=== PATIENT | female | born 1995 | race American Indian/Alaskan Native ===

== ENCOUNTER 2017-12-19 12:22 | Emergency (ER) | payer SELFPAY ==
[2017-12-19 14:19] LABS: HCG Qualitative,Urine Negative (Negative)
[2017-12-19 14:23] LABS: Bilirubin,Urine NEG (Negative); Blood,Urine NEG (Negative); Color,Urine Yellow (Yellow); Mucus,Urine 3+ /HPF; Protein,Urine <15 mg/dL mg/dL (Negative); Urobilinogen,Urine < 2.0 mg/dL (<2.0)
--- NOTE | 2017-12-19 16:00 | Emergency Department Report ---
ED Female HPI - General Chief complaint: Urogenital-Female Stated complaint: STOMACH,VAGINAL PAIN Time Seen by Provider: 12/19/17 15:45 Source: patient Mode of arrival: Ambulatory Limitations: No Limitations - History of Present Illness Initial comments: Patient is a 21-year-old asthmatic female who is here for some lower abdominal discomfort and dysuria. Patient states symptoms of present for the past 2-3 days. Patient states there is some burning sensation when she urinates and also irritation when she wipes. Patient denies urinary frequency or discharge. Patient states she also is late for her menses. Her last menses was October 25 last normal. Patient has taken several prior to tests at home which are negative. Patient denies any fevers chills nausea vomiting at this time. - Related Data Previous Rx's Medication Instructions Recorded Last Taken Type Ibuprofen [Motrin] 600 mg PO Q8H PRN #20 tablet 12/19/17 Unknown Rx Nitrofurantoin Monohyd/M-Cryst 100 mg PO BID #14 capsule 12/19/17 Unknown Rx [Macrobid 100 mg Capsule] Allergies Allergy/AdvReac Type Severity Reaction Status Date / Time No Known Allergies Allergy Verified 12/19/17 13:12 ED Review of Systems ROS: Stated complaint: STOMACH,VAGINAL PAIN Other details as noted in HPI Comment: All other systems reviewed and negative ED Past Medical Hx - Past Medical History Previous Medical History?: No - Surgical History Past Surgical History?: No - Social History Smoking Status: Never Smoker Substance Use Type: Alcohol, Marijuana - Medications Home Medications: Home Medications Medication Instructions Recorded Confirmed Last Taken Type Ibuprofen [Motrin] 600 mg PO Q8H PRN #20 tablet 12/19/17 Unknown Rx Nitrofurantoin Monohyd/M-Cryst 100 mg PO BID #14 capsule 12/19/17 Unknown Rx [Macrobid 100 mg Capsule] ED Physical Exam - General Limitations: No Limitations General appearance: alert, in no apparent distress - Head Head exam: Present: atraumatic, normocephalic - Eye Eye exam: Present: normal appearance - ENT ENT exam: Present: mucous membranes moist - Neck Neck exam: Present: normal inspection - Respiratory Respiratory exam: Present: normal lung sounds bilaterally. Absent: respiratory distress, wheezes, rales - Cardiovascular Cardiovascular Exam: Present: regular rate, normal rhythm. Absent: systolic murmur, diastolic murmur, rubs, gallop - GI/Abdominal GI/Abdominal exam: Present: soft, normal bowel sounds. Absent: distended, tenderness, guarding, rebound - External exam: Present: other (deferred) - Extremities Exam Extremities exam: Present: normal inspection - Back Exam Back exam: Present: normal inspection - Neurological Exam Neurological exam: Present: alert, oriented X3 - Psychiatric Psychiatric exam: Present: normal affect, normal mood - Skin Skin exam: Present: warm, dry, intact, normal color. Absent: rash ED Course Vital Signs 12/19/17 13:13 Temperature 98.6 F Pulse Rate 71 Respiratory 16 Rate Blood Pressure 121/67 O2 Sat by Pulse 96 Oximetry ED Medical Decision Making - Lab Data Lab Results 12/19/17 Range/Units 14:00 Urine Color Yellow (Yellow) Urine Turbidity Cloudy (Clear) Urine pH 5.0 (5.0-7.0) Ur Specific [place] 1.029 (1.003-1.030) Urine Protein <15 mg/dl (Negative) mg/dL Urine Glucose (UA) Neg (Negative) mg/dL Urine Ketones Neg (Negative) mg/dL Urine Blood Neg (Negative) Urine Nitrite Neg (Negative) Ur Reducing Substances Not Reportable Urine Bilirubin Neg (Negative) Urine Ictotest Not Reportable Urine Urobilinogen < 2.0 (<2.0) mg/dL Ur Leukocyte Esterase Neg (Negative) Urine WBC (Auto) 2.0 (0.0-6.0) /HPF Urine RBC (Auto) 5.0 (0.0-6.0) /HPF U Epithel Cells (Auto) 14.0 H (0-13.0) /HPF Urine Mucus 3+ /HPF Urine HCG, Qual Negative (Negative) - Medical Decision Making Patient's years now since was negative for nitrites and leukocytes however the patient is symptomatic. There is a small amount of wbc's present. Urine culture will be sent the patient will be treated empirically for interstitial cystitis. Regarding the patient's missed menses her test here is negative she will be referred to [facility] for further management. Critical care attestation.: If time is entered above; I have spent that time in minutes in the direct care of this critically ill patient, excluding procedure time. ED Disposition Clinical Impression: Dysuria Oligomenorrhea, unspecified Qualifiers: Oligomenorrhea type: unspecified type Qualified Code(s): N91.5 - Oligomenorrhea , unspecified Disposition: TO HOME OR SELFCARE Is pt being admited?: No Does the pt Need Aspirin: No Condition: Stable Instructions: Dysuria (ED) Referrals: PARISH MEHTA [Staff Physician] - 3-5 Days Time of Disposition: 16:00
[2017-12-19 16:09] VITALS: BP 146/72
== END 2017-12-19 16:06 | disposition home or self-care (01) ==
LOC: ED 12:22
DX: N91.5 Oligomenorrhea, unspecified (principal); F12.10 Cannabis abuse, uncomplicated
CPT/HCPCS: 81001; 81025; 99283

== ENCOUNTER 2020-02-06 15:12 | Emergency (ER) | payer SELFPAY ==
--- NOTE | 2020-02-06 20:00 | Emergency Department Report ---
ED General Adult HPI - General Chief complaint: Sore Throat Stated complaint: CHILLS/LIGHT HEADED/THROAT SOAR Time Seen by Provider: 02/06/20 19:59 Source: patient Mode of arrival: Ambulatory Limitations: No Limitations - History of Present Illness Initial comments: 24-year-old -[place] female patient presents with complaints of sore throat x2 days. She states she has painful swallowing, but denies any difficulty swallowing. She also reports a mild nonproductive cough and chills, but denies any fever, sweats, hemoptysis, shortness of breath, chest pain, rash, abdominal pain, or nausea/vomiting. She rates her current pain as a 6/10 in severity states it improves with ibuprofen somewhat. She denies any past medical history - Related Data Previous Rx's Medication Instructions Recorded Last Taken Type Ibuprofen [Motrin] 600 mg PO Q8H PRN #20 tablet 12/19/17 Unknown Rx Nitrofurantoin Monohyd/M-Cryst 100 mg PO BID #14 capsule 12/19/17 Unknown Rx [Macrobid 100 mg Capsule] Amoxicillin [Trimox CAP] 500 mg PO BID 10 Days #20 capsule 10/14/19 Unknown Rx Cetirizine HCl [Zyrtec 10mg tab] 10 mg PO DAILY #14 tablet 10/14/19 Unknown Rx Clindamycin [Clindamycin CAP] 300 mg PO Q6H 10 Days #40 capsule 11/16/19 Unknown Rx Ibuprofen [Motrin 800 MG tab] 800 mg PO Q8HR PRN #21 tablet 11/16/19 Unknown Rx Amoxicillin [Trimox CAP] 500 mg PO BID 10 Days #20 capsule 02/06/20 Unknown Rx Allergies Allergy/AdvReac Type Severity Reaction Status Date / Time blueberry Allergy Unknown Verified 02/06/20 15:24 ED Review of Systems ROS: Stated complaint: CHILLS/LIGHT HEADED/THROAT SOAR Other details as noted in HPI Constitutional: chills. denies: diaphoresis, fever, malaise, weakness ENT: throat pain. denies: dental pain Respiratory: cough. denies: shortness of breath Cardiovascular: denies: edema, syncope Gastrointestinal: denies: abdominal pain, nausea, vomiting Skin: denies: rash, lesions, change in color Hematological/Lymphatic: denies: swollen glands ED Past Medical Hx - Past Medical History Additional medical history: Bronchitis - Surgical History Hx Appendectomy: Yes - Social History Smoking Status: Never Smoker Substance Use Type: None - Medications Home Medications: Home Medications Medication Instructions Recorded Confirmed Last Taken Type Ibuprofen [Motrin] 600 mg PO Q8H PRN #20 tablet 12/19/17 Unknown Rx Nitrofurantoin Monohyd/M-Cryst 100 mg PO BID #14 capsule 12/19/17 Unknown Rx [Macrobid 100 mg Capsule] Amoxicillin [Trimox CAP] 500 mg PO BID 10 Days #20 capsule 10/14/19 Unknown Rx Cetirizine HCl [Zyrtec 10mg tab] 10 mg PO DAILY #14 tablet 10/14/19 Unknown Rx Clindamycin [Clindamycin CAP] 300 mg PO Q6H 10 Days #40 capsule 11/16/19 Unknown Rx Ibuprofen [Motrin 800 MG tab] 800 mg PO Q8HR PRN #21 tablet 11/16/19 Unknown Rx Amoxicillin [Trimox CAP] 500 mg PO BID 10 Days #20 capsule 02/06/20 Unknown Rx ED Physical Exam - General Limitations: No Limitations General appearance: alert, in no apparent distress, obese - Head Head exam: Present: atraumatic, normocephalic - Eye Eye exam: Present: normal appearance. Absent: scleral icterus - Expanded ENT Exam Expanded Mouth exam: Present: tongue normal. Absent: drooling, trismus Throat exam: Positive: tonsillar erythema, tonsillomegaly, tonsillar exudate, other (uvula is midline) - Neck Neck exam: Present: normal inspection, full ROM. Absent: tenderness, lymphadenopathy - Respiratory Respiratory exam: Present: normal lung sounds bilaterally. Absent: respiratory distress - Cardiovascular Cardiovascular Exam: Present: regular rate, normal rhythm. Absent: systolic murmur, diastolic murmur, rubs, gallop - Neurological Exam Neurological exam: Present: alert, oriented X3 - Psychiatric Psychiatric exam: Present: normal affect, normal mood - Skin Skin exam: Present: warm, dry, intact, normal color. Absent: rash, cyanosis, diaphoretic ED Course Vital Signs 02/06/20 15:27 Temperature 99.7 F H Pulse Rate 94 H Respiratory 20 Rate Blood Pressure 127/80 O2 Sat by Pulse 98 Oximetry ED Medical Decision Making - Medical Decision Making 24-year-old -[place] female patient presents with complaints of sore throat x2 days. She states she has painful swallowing, but denies any diffic ulty swallowing. She also reports a mild nonproductive cough and chills, but denies any fever, sweats, hemoptysis, shortness of breath, chest pain, rash, abdominal pain, or nausea/vomiting. She rates her current pain as a 6/10 in severity states it improves with ibuprofen somewhat. She denies any past medical history Bilateral tonsillar erythema, enlargement, and mild exudate noted on exam. Sue ngs are clear to auscultation bilaterally. Will treat empirically for strep pharyngitis with Amoxil. Patient to follow-up with PCP within 3 to 5 days. Her vitals are normal, she is well-appearing, stable for discharge home. Ibuprofen is to be used as needed as 600 to 800 mg 3 times daily. Strict return precautions were discussed in detail with patient who verbalized understanding. Critical care attestation.: If time is entered above; I have spent that time in minutes in the direct care of this critically ill patient, excluding procedure time. ED Disposition Clinical Impression: Acute pharyngitis Qualifiers: Pharyngitis/tonsillitis etiology: other specified organisms Qualified Code(s): J02.8 - Acute pharyngitis due to other specified organisms Disposition: DC-01 TO HOME OR SELFCARE Is pt being admited?: No Condition: Stable Instructions: Strep Throat (ED) Prescriptions: Amoxicillin [Trimox CAP] 500 mg PO BID 10 Days #20 capsule Referrals: AAYUSH CRUM MD [Staff Physician] - 3-5 Days
[2020-02-06 21:56] VITALS: BP 137/96
== END 2020-02-06 21:58 | disposition home or self-care (01) ==
LOC: ED 15:12
DX: J02.9 Acute pharyngitis, unspecified (principal); Z79.899 Other long term (current) drug therapy; Z90.49 Acquired absence of other specified parts of digestive tract; Z91.018 Allergy to other foods
CPT/HCPCS: 99281

== ENCOUNTER 2020-04-08 07:57 | Emergency (ER) | payer SELFPAY ==
[2020-04-08] MEDS ORDERED: KETOROLAC 60 MG/2 ML INJ IM ONE (12:07)
--- NOTE | 2020-04-08 12:08 | Emergency Department Report ---
ED Back Pain/Injury HPI - General Chief Complaint: Back Pain/Injury Stated Complaint: SEVERE BACK PAIN Time Seen by Provider: 04/08/20 12:06 Source: patient Limitations: No Limitations - History of Present Illness Initial Comments: This is a morbidly obese 24-year-old female complaining of lower back pain x1 week she denies any recent falls or injuries. She denies any urinary symptoms no prior history of back pain patient works as a guard she states bending and twisting is lowering her pain she denies any bowel or bladder incontinence and she denies any medical history she does report a history of appendectomy MD Complaint: back pain -: week(s) (1 week) Similar Symptoms Previously: No Place: home Radiation: none Severity: moderate Quality: aching Consistency: constant Improves With: immobilization Worsens With: movement, other (Bending and twisting causes the pain to worsen) Associated Symptoms: denies other symptoms. denies: weakness, chest pain, numbness, difficulty walking, cough, difficulty urinating, fever/chills, constipation, headaches, abdominal pain, loss of appetite, rash, seizure, shortness of breath - Related Data Previous Rx's Medication Instructions Recorded Last Taken Type Ibuprofen [Motrin] 600 mg PO Q8H PRN #20 tablet 12/19/17 Unknown Rx Nitrofurantoin Monohyd/M-Cryst 100 mg PO BID #14 capsule 12/19/17 Unknown Rx [Macrobid 100 mg Capsule] Amoxicillin [Trimox CAP] 500 mg PO BID 10 Days #20 capsule 10/14/19 Unknown Rx Cetirizine HCl [Zyrtec 10mg tab] 10 mg PO DAILY #14 tablet 10/14/19 Unknown Rx Clindamycin [Clindamycin CAP] 300 mg PO Q6H 10 Days #40 capsule 11/16/19 Unknown Rx Ibuprofen [Motrin 800 MG tab] 800 mg PO Q8HR PRN #21 tablet 11/16/19 Unknown Rx Amoxicillin [Trimox CAP] 500 mg PO BID 10 Days #20 capsule 02/06/20 Unknown Rx Ibuprofen [Motrin] 800 mg PO Q8HR PRN #21 tablet 04/08/20 Unknown Rx methOCARBAMOL [Robaxin TAB] 750 mg PO BID #30 tab 04/08/20 Unknown Rx Allergies Allergy/AdvReac Type Severity Reaction Status Date / Time blueberry Allergy Unknown Verified 02/06/20 15:24 ED Review of Systems ROS: Stated complaint: SEVERE BACK PAIN Other details as noted in HPI Comment: All other systems reviewed and negative Constitutional: no symptoms reported Respiratory: no symptoms reported. denies: shortness of breath, SOB with exertion Cardiovascular: denies: chest pain, palpitations Endocrine: no symptoms reported Gastrointestinal: denies: abdominal pain Musculoskeletal: back pain Neurological: denies: headache, weakness, paresthesias, abnormal gait Psychiatric: denies: anxiety ED Past Medical Hx - Past Medical History Previous Medical History?: Yes Additional medical history: Bronchitis - Surgical History Past Surgical History?: Yes Hx Appendectomy: Yes - Social History Smoking Status: Never Smoker Substance Use Type: None - Medications Home Medications: Home Medications Medication Instructions Recorded Confirmed Last Taken Type Ibuprofen [Motrin] 600 mg PO Q8H PRN #20 tablet 12/19/17 Unknown Rx Nitrofurantoin Monohyd/M-Cryst 100 mg PO BID #14 capsule 12/19/17 Unknown Rx [Macrobid 100 mg Capsule] Amoxicillin [Trimox CAP] 500 mg PO BID 10 Days #20 capsule 10/14/19 Unknown Rx Cetirizine HCl [Zyrtec 10mg tab] 10 mg PO DAILY #14 tablet 10/14/19 Unknown Rx Clindamycin [Clindamycin CAP] 300 mg PO Q6H 10 Days #40 capsule 11/16/19 Unknown Rx Ibuprofen [Motrin 800 MG tab] 800 mg PO Q8HR PRN #21 tablet 11/16/19 Unknown Rx Amoxicillin [Trimox CAP] 500 mg PO BID 10 Days #20 capsule 02/06/20 Unknown Rx Ibuprofen [Motrin] 800 mg PO Q8HR PRN #21 tablet 04/08/20 Unknown Rx methOCARBAMOL [Robaxin TAB] 750 mg PO BID #30 tab 04/08/20 Unknown Rx ED Physical Exam - General Limitations: No Limitations General appearance: alert, in no apparent distress - Head Head exam: Present: atraumatic - Eye Eye exam: Present: normal appearance - ENT ENT exam: Present: normal exam, mucous membranes moist - Neck Neck exam: Present: normal inspection - Respiratory Respiratory exam: Present: normal lung sounds bilaterally - Cardiovascular Cardiovascular Exam: Present: regular rate, normal heart sounds - GI/Abdominal GI/Abdominal exam: Present: soft. Absent: distended, tenderness - Extremities Exam Extremities exam: Present: normal inspection, full ROM, normal capillary refill - Back Exam Back exam: Present: normal inspection, full ROM, paraspinal tenderness, other. Absent: vertebral tenderness - Neurological Exam Neurological exam: Present: alert, oriented X3 - Psychiatric Psychiatric exam: Present: normal affect - Skin Skin exam: Present: warm, dry, intact, normal color. Absent: rash ED Course Vital Signs 04/08/20 04/08/20 08:18 15:30 Temperature 98.2 F 98.2 F Pulse Rate 88 77 Respiratory 18 18 Rate Blood Pressure 119/63 Blood Pressure 113/56 [Right] O2 Sat by Pulse 96 97 Oximetry ED Medical Decision Making - Medical Decision Making 24-year-old morbidly obese female with complaint of back pain no known trauma or falls. Her urine is negative for urinary tract infection this is most likely just lumbar strain discussed with patient need for weight loss to aid in the relief of her back pain patient verbalizes understanding Critical Care Time: No Critical care attestation.: If time is entered above; I have spent that time in minutes in the direct care of this critically ill patient, excluding procedure time. ED Disposition Clinical Impression: Low back strain Qualifiers: Encounter type: initial encounter Qualified Code(s): S39.012A - Strain of muscle, fascia and tendon of lower back, initial encounter Disposition: DC-01 TO HOME OR SELFCARE Is pt being admited?: No Does the pt Need Aspirin: No Condition: Stable Instructions: Lumbar Sprain, Back Injury Prevention, [id number], Low Back Sprain or Strain Rehab-SportsMed Additional Instructions: Take medication as prescribed. No heavy lifting more than 20 pounds. Follow-up with your primary care doctor in 3 to [address] Alemida or return to the emergency room for any worsening symptoms such as loss of bowel and bladder control Prescriptions: Ibuprofen [Motrin] 800 mg PO Q8HR PRN #21 tablet PRN Reason: Pain , Severe (7-10) methOCARBAMOL [Robaxin TAB] 750 mg PO BID #30 tab Referrals: PRIMARY CAREMD [Primary Care Provider] - 3-5 Days AAYUSH ALMEIDA MD [Staff Physician] - 3-5 Days Forms: Work/School Release Form(ED) Time of Disposition: 14:15
[2020-04-08 14:00] LABS: Bilirubin,Urine NEG (Negative); Blood,Urine NEG (Negative); Color,Urine Yellow (Yellow); Mucus,Urine 3+ /HPF; Protein,Urine <15 mg/dL mg/dL (Negative); Urobilinogen,Urine < 2.0 mg/dL (<2.0)
[2020-04-08 14:01] LABS: HCG Qualitative,Urine Negative (Negative)
[2020-04-08 15:43] VITALS: BP 113/56
== END 2020-04-08 15:38 | disposition home or self-care (01) ==
LOC: ED 07:57
DX: S39.012A Strain of muscle, fascia and tendon of lower back, initial encounter (principal); Z79.899 Other long term (current) drug therapy; Z91.018 Allergy to other foods; Z90.49 Acquired absence of other specified parts of digestive tract; X50.1XXA Overexertion from prolonged static or awkward postures, initial encounter; Y93.89 Activity, other specified; Y92.009 Unspecified place in unspecified non-institutional (private) residence as the place of occurrence of the external cause; Y99.8 Other external cause status
CPT/HCPCS: 81001; 81025; 96372; 99283; J1885

== ENCOUNTER 2020-08-01 14:35 | Emergency (ER) | payer SELFPAY ==
[2020-08-01 16:04] VITALS: BP 137/90
--- NOTE | 2020-08-01 18:02 | Emergency Department Report ---
ED ENT HPI - General Chief complaint: Sore Throat Stated complaint: SORE THROAT/RUNNY NOSE Time Seen by Provider: 08/01/20 17:09 Source: patient Mode of arrival: Ambulatory Limitations: No Limitations - History of Present Illness Initial comments: 24-year-old abdomen female [facility] emerge department complaining a 3-day history of not progressing sore throat that is worse with eating and drinking. She reports no nausea, no vomiting, no chest pain, palpitations, hemoptysis, hematemesis hematochezia, no fever, chills, sweats. She was able to tolerate l iquids and is still able to swallow pills. No abdominal pain or rashes at present no ear pain no nasal congestion. Severity: mild, moderate Quality: dull Improves with: none Worsens with: none Associated Symptoms: sore throat - Related Data Previous Rx's Medication Instructions Recorded Last Taken Type Ibuprofen [Motrin] 600 mg PO Q8H PRN #20 tablet 12/19/17 Unknown Rx Nitrofurantoin Monohyd/M-Cryst 100 mg PO BID #14 capsule 12/19/17 Unknown Rx [Macrobid 100 mg Capsule] Amoxicillin [Trimox CAP] 500 mg PO BID 10 Days #20 capsule 10/14/19 Unknown Rx Cetirizine HCl [Zyrtec 10mg tab] 10 mg PO DAILY #14 tablet 10/14/19 Unknown Rx Clindamycin [Clindamycin CAP] 300 mg PO Q6H 10 Days #40 capsule 11/16/19 Unknown Rx Ibuprofen [Motrin 800 MG tab] 800 mg PO Q8HR PRN #21 tablet 11/16/19 Unknown Rx Amoxicillin [Trimox CAP] 500 mg PO BID 10 Days #20 capsule 02/06/20 Unknown Rx Ibuprofen [Motrin] 800 mg PO Q8HR PRN #21 tablet 04/08/20 Unknown Rx methOCARBAMOL [Robaxin TAB] 750 mg PO BID #30 tab 04/08/20 Unknown Rx Amoxicillin/Potassium Clav 1 each PO BID #14 tablet 08/01/20 Unknown Rx [Augmentin 875-125 Tablet] dexAMETHasone [Decadron] 8 mg PO ONCE #2 tablet 08/01/20 Unknown Rx Allergies Allergy/AdvReac Type Severity Reaction Status Date / Time blueberry Allergy Unknown Verified 02/06/20 15:24 ED Dental HPI - General Chief complaint: Sore Throat Stated complaint: SORE THROAT/RUNNY NOSE Time Seen by Provider: 08/01/20 17:09 Source: patient Mode of arrival: Ambulatory Limitations: No Limitations - Related Data Previous Rx's Medication Instructions Recorded Last Taken Type Ibuprofen [Motrin] 600 mg PO Q8H PRN #20 tablet 12/19/17 Unknown Rx Nitrofurantoin Monohyd/M-Cryst 100 mg PO BID #14 capsule 12/19/17 Unknown Rx [Macrobid 100 mg Capsule] Amoxicillin [Trimox CAP] 500 mg PO BID 10 Days #20 capsule 10/14/19 Unknown Rx Cetirizine HCl [Zyrtec 10mg tab] 10 mg PO DAILY #14 tablet 10/14/19 Unknown Rx Clindamycin [Clindamycin CAP] 300 mg PO Q6H 10 Days #40 capsule 11/16/19 Unknown Rx Ibuprofen [Motrin 800 MG tab] 800 mg PO Q8HR PRN #21 tablet 11/16/19 Unknown Rx Amoxicillin [Trimox CAP] 500 mg PO BID 10 Days #20 capsule 02/06/20 Unknown Rx Ibuprofen [Motrin] 800 mg PO Q8HR PRN #21 tablet 04/08/20 Unknown Rx methOCARBAMOL [Robaxin TAB] 750 mg PO BID #30 tab 04/08/20 Unknown Rx Amoxicillin/Potassium Clav 1 each PO BID #14 tablet 08/01/20 Unknown Rx [Augmentin 875-125 Tablet] dexAMETHasone [Decadron] 8 mg PO ONCE #2 tablet 08/01/20 Unknown Rx Allergies Allergy/AdvReac Type Severity Reaction Status Date / Time blueberry Allergy Unknown Verified 02/06/20 15:24 ED Review of Systems ROS: Stated complaint: SORE THROAT/RUNNY NOSE Other details as noted in HPI Comment: All other systems reviewed and negative ED Past Medical Hx - Past Medical History Previous Medical History?: No Additional medical history: Bronchitis - Surgical History Hx Appendectomy: Yes - Social History Smoking Status: Never Smoker Substance Use Type: None - Medications Home Medications: Home Medications Medication Instructions Recorded Confirmed Last Taken Type Ibuprofen [Motrin] 600 mg PO Q8H PRN #20 tablet 12/19/17 Unknown Rx Nitrofurantoin Monohyd/M-Cryst 100 mg PO BID #14 capsule 12/19/17 Unknown Rx [Macrobid 100 mg Capsule] Amoxicillin [Trimox CAP] 500 mg PO BID 10 Days #20 capsule 10/14/19 Unknown Rx Cetirizine HCl [Zyrtec 10mg tab] 10 mg PO DAILY #14 tablet 10/14/19 Unknown Rx Clindamycin [Clindamycin CAP] 300 mg PO Q6H 10 Days #40 capsule 11/16/19 Unknown Rx Ibuprofen [Motrin 800 MG tab] 800 mg PO Q8HR PRN #21 tablet 11/16/19 Unknown Rx Amoxicillin [Trimox CAP] 500 mg PO BID 10 Days #20 capsule 02/06/20 Unknown Rx Ibuprofen [Motrin] 800 mg PO Q8HR PRN #21 tablet 04/08/20 Unknown Rx methOCARBAMOL [Robaxin TAB] 750 mg PO BID #30 tab 04/08/20 Unknown Rx Amoxicillin/Potassium Clav 1 each PO BID #14 tablet 08/01/20 Unknown Rx [Augmentin 875-125 Tablet] dexAMETHasone [Decadron] 8 mg PO ONCE #2 tablet 08/01/20 Unknown Rx ED Physical Exam - General Limitations: No Limitations General appearance: alert, in no apparent distress - Head Head exam: Present: atraumatic, normocephalic - Eye Eye exam: Present: normal appearance - ENT ENT exam: Present: mucous membranes moist, TM's normal bilaterally, other (Pharynx is red with some swelling. No exudate. No abscess noted. No lymphadenopathy) - Neck Neck exam: Present: normal inspection, full ROM - Respiratory Respiratory exam: Present: normal lung sounds bilaterally. Absent: respiratory distress - Cardiovascular Cardiovascular Exam: Present: regular rate, normal rhythm. Absent: systolic murmur, diastolic murmur, rubs, gallop - GI/Abdominal GI/Abdominal exam: Present: soft, normal bowel sounds - Extremities Exam Extremities exam: Present: normal inspection - Back Exam Back exam: Present: normal inspection - Neurological Exam Neurological exam: Present: alert, oriented X3 - Psychiatric Psychiatric exam: Present: normal affect, normal mood - Skin Skin exam: Present: warm, dry, intact, normal color. Absent: rash ED Course Vital Signs 08/01/20 16:03 Temperature 98.6 F Pulse Rate 78 Respiratory 18 Rate Blood Pressure 137/90 [Right] O2 Sat by Pulse 97 Oximetry Critical care attestation.: If time is entered above; I have spent that time in minutes in the direct care of this critically ill patient, excluding procedure time. ED Disposition Condition: Stable Prescriptions: Amoxicillin/Potassium Clav [Augmentin 875-125 Tablet] 1 each PO BID #14 tablet dexAMETHasone [Decadron] 8 mg PO ONCE #2 tablet
== END 2020-08-01 19:49 | disposition home or self-care (01) ==
LOC: ED 14:35
DX: J02.9 Acute pharyngitis, unspecified (principal); Z90.49 Acquired absence of other specified parts of digestive tract; Z79.899 Other long term (current) drug therapy; Z88.8 Allergy status to other drugs, medicaments and biological substances
CPT/HCPCS: 87116; 87430; 99283

== ENCOUNTER 2021-04-29 16:37 | Emergency (ER) | payer SELFPAY ==
[2021-04-29 18:13] VITALS: BP 129/92
[2021-04-29] MEDS ORDERED: GABAPENTIN 300 MG CAP PO ONE (22:54)
[2021-04-29] MEDS ORDERED: diazePAM 5 MG TAB PO ONE (22:54)
[2021-04-29] MEDS ORDERED: predniSONE 20 MG TAB PO ONE (22:54)
[2021-04-29] MEDS ORDERED: IBUPROFEN 800 MG TAB PO ONE (22:54)
[2021-04-29 22:57] LABS: Bilirubin,Urine NEG (Negative); Blood,Urine MOD (Negative); Color,Urine Yellow (Yellow); Mucus,Urine FEW /HPF
[2021-04-29 23:01] LABS: RBC,Urine > 182.0 /HPF (0.0-6.0)
[2021-04-29 23:03] LABS: HCG Qualitative,Urine Negative (Negative)
--- NOTE | 2021-04-29 23:11 | Emergency Department Report ---
ED Back Pain/Injury HPI - General Chief Complaint: Back Pain/Injury Stated Complaint: BACK PAIN Source: patient Limitations: No Limitations - History of Present Illness Initial Comments: Patient is a 25-year-old -Welsh female with a history of chronic low back pain who presents to the ED with complaint of acute onset persistent severe low back pain that radiates to the lower extremities bilaterally for the last 2 days. Patient states that the pain is worse with any movement or palpation of her low back. Patient denies fall, heavy lifting, traumatic injury, numbness and tingling or weakness of lower extremities bilaterally, urinary or bowel incontinence, saddle paresthesia, abdominal pain, fever, chills, diarrhea, headache, chest pain, shortness of breath or neck pain. MD Complaint: back pain (lower), other (urinary urgency and frequency) -: Sudden, days(s) (2) Similar Symptoms Previously: Yes Place: home Radiation: left leg, right leg Severity scale (0 -10): 7 Quality: sharp, aching Consistency: constant Improves With: none Worsens With: movement, sitting upright, walking Context: while lifting, turning/twisting, bending Associated Symptoms: denies other symptoms. denies: confusion, weakness, chest pain, numbness, difficulty walking, cough, difficulty urinating, diaphoresis, incontinence, fever/chills, constipation, headaches, abdominal pain, loss of appetite, malaise, nausea/vomiting, rash, seizure, shortness of breath, syncope, other Treatments Prior to Arrival: acetaminophen - Related Data Previous Rx's Medication Instructions Recorded Last Taken Type Ibuprofen [Motrin] 600 mg PO Q8H PRN #20 tablet 12/19/17 Unknown Rx Nitrofurantoin Monohyd/M-Cryst 100 mg PO BID #14 capsule 12/19/17 Unknown Rx [Macrobid 100 mg Capsule] Amoxicillin [Trimox CAP] 500 mg PO BID 10 Days #20 capsule 10/14/19 Unknown Rx Cetirizine HCl [Zyrtec 10mg tab] 10 mg PO DAILY #14 tablet 10/14/19 Unknown Rx Clindamycin [Clindamycin CAP] 300 mg PO Q6H 10 Days #40 capsule 11/16/19 Unknown Rx Ibuprofen [Motrin 800 MG tab] 800 mg PO Q8HR PRN #21 tablet 11/16/19 Unknown Rx Amoxicillin [Trimox CAP] 500 mg PO BID 10 Days #20 capsule 02/06/20 Unknown Rx Ibuprofen [Motrin] 800 mg PO Q8HR PRN #21 tablet 04/08/20 Unknown Rx methOCARBAMOL [Robaxin TAB] 750 mg PO BID #30 tab 04/08/20 Unknown Rx Amoxicillin/Potassium Clav 1 each PO BID #14 tablet 08/01/20 Unknown Rx [Augmentin 875-125 Tablet] dexAMETHasone [Decadron] 8 mg PO ONCE #2 tablet 08/01/20 Unknown Rx Ibuprofen [Motrin] 800 mg PO Q8HR PRN #30 tablet 04/29/21 Unknown Rx Sulfamethoxazole/Trimethoprim 1 each PO Q12H #20 04/29/21 Unknown Rx [Bactrim DS TAB] methOCARBAMOL [Robaxin TAB] 750 mg PO Q8H PRN #30 tab 04/29/21 Unknown Rx traMADoL [Ultram] 50 mg PO Q6HR PRN #15 tablet 04/29/21 Unknown Rx Allergies Allergy/AdvReac Type Severity Reaction Status Date / Time blueberry Allergy Swelling Verified 04/29/21 18:03 ED Review of Systems ROS: Stated complaint: BACK PAIN Other details as noted in HPI Constitutional: denies: chills, fever Eyes: denies: eye pain, eye discharge, vision change ENT: denies: ear pain, throat pain Respiratory: denies: cough, shortness of breath, wheezing Cardiovascular: denies: chest pain, palpitations Endocrine: no symptoms reported Gastrointestinal: denies: abdominal pain, nausea, diarrhea Genitourinary: urgency, frequency. denies: dysuria, discharge Musculoskeletal: back pain (lower back pain), arthralgia. denies: joint swelling Skin: denies: rash, lesions Neurological: denies: headache, weakness, paresthesias Psychiatric: denies: anxiety, depression Hematological/Lymphatic: denies: easy bleeding, easy bruising ED Past Medical Hx - Past Medical History Additional medical history: Bronchitis - Surgical History Hx Appendectomy: Yes - Social History Smoking Status: Never Smoker Substance Use Type: None - Medications Home Medications: Home Medications Medication Instructions Recorded Confirmed Last Taken Type Ibuprofen [Motrin] 600 mg PO Q8H PRN #20 tablet 12/19/17 Unknown Rx Nitrofurantoin Monohyd/M-Cryst 100 mg PO BID #14 capsule 12/19/17 Unknown Rx [Macrobid 100 mg Capsule] Amoxicillin [Trimox CAP] 500 mg PO BID 10 Days #20 capsule 10/14/19 Unknown Rx Cetirizine HCl [Zyrtec 10mg tab] 10 mg PO DAILY #14 tablet 10/14/19 Unknown Rx Clindamycin [Clindamycin CAP] 300 mg PO Q6H 10 Days #40 capsule 11/16/19 Unknown Rx Ibuprofen [Motrin 800 MG tab] 800 mg PO Q8HR PRN #21 tablet 11/16/19 Unknown Rx Amoxicillin [Trimox CAP] 500 mg PO BID 10 Days #20 capsule 02/06/20 Unknown Rx Ibuprofen [Motrin] 800 mg PO Q8HR PRN #21 tablet 04/08/20 Unknown Rx methOCARBAMOL [Robaxin TAB] 750 mg PO BID #30 tab 04/08/20 Unknown Rx Amoxicillin/Potassium Clav 1 each PO BID #14 tablet 08/01/20 Unknown Rx [Augmentin 875-125 Tablet] dexAMETHasone [Decadron] 8 mg PO ONCE #2 tablet 08/01/20 Unknown Rx Ibuprofen [Motrin] 800 mg PO Q8HR PRN #30 tablet 04/29/21 Unknown Rx Sulfamethoxazole/Trimethoprim 1 each PO Q12H #20 04/29/21 Unknown Rx [Bactrim DS TAB] methOCARBAMOL [Robaxin TAB] 750 mg PO Q8H PRN #30 tab 04/29/21 Unknown Rx traMADoL [Ultram] 50 mg PO Q6HR PRN #15 tablet 04/29/21 Unknown Rx ED Physical Exam - General Limitations: No Limitations, Language Barrier General appearance: alert, in no apparent distress, obese - Head Head exam: Present: atraumatic, normocephalic, normal inspection - Eye Eye exam: Present: normal appearance, PERRL, EOMI. Absent: scleral icterus, conjunctival injection, periorbital swelling, periorbital tenderness Pupils: Present: normal accommodation - ENT ENT exam: Present: normal exam, normal orophraynx, mucous membranes moist, TM's normal bilaterally, normal external ear exam - Neck Neck exam: Present: normal inspection, full ROM. Absent: tenderness - Respiratory Respiratory exam: Present: normal lung sounds bilaterally. Absent: respiratory distress, wheezes, rales, rhonchi, stridor, chest wall tenderness, accessory muscle use, prolonged expiratory - Cardiovascular Cardiovascular Exam: Present: normal rhythm, tachycardia, normal heart sounds. Absent: systolic murmur, diastolic murmur, rubs, gallop - GI/Abdominal GI/Abdominal exam: Present: soft, normal bowel sounds. Absent: tenderness, guarding, rebound, hyperactive bowel sounds, hypoactive bowel sounds - Extremities Exam Extremities exam: Present: normal inspection, full ROM, normal capillary refill. Absent: tenderness, pedal edema, joint swelling - Back Exam Back exam: Present: normal inspection, full ROM, tenderness (Palpable lumbosacral paraspinal musculoskeletal tenderness), muscle spasm, paraspinal tenderness. Absent: CVA tenderness (L), vertebral tenderness - Neurological Exam Neurological exam: Present: alert, oriented X3, CN II-XII intact, normal gait, reflexes normal - Psychiatric Psychiatric exam: Present: normal affect, normal mood - Skin Skin exam: Present: warm, dry, intact, normal color. Absent: rash ED Course Vital Signs 04/29/21 18:11 Temperature 98.0 F Pulse Rate 102 H Respiratory 20 Rate Blood Pressure 129/92 O2 Sat by Pulse 96 Oximetry ED Medical Decision Making - Medical Decision Making This is a 25-year-old -Welsh female with a history of chronic low back pain who presents to the ED with complaint of acute onset persistent severe low back pain that radiates to the lower extremities bilaterally for the last 2 days. Patient states that the pain is worse with any movement or palpation of her low back. In the ED, patient is alert and oriented x3 and is not in any distress. Patient appears to be in pain. Patient was treated for pain in the ED. Urinalysis showed acute urinary tract infection. Patient was therefore discharged home on pain medication and antibiotics and advised to follow-up with her primary care physician in 5 to 7 days for reevaluation or return to the ED immediately if symptoms get worse. - Differential Diagnosis muscle spasm; muscle strain; UTI; Sciatica; Chronic low back pain Critical care attestation.: If time is entered above; I have spent that time in minutes in the direct care of this critically ill patient, excluding procedure time. ED Disposition Clinical Impression: Spasm of muscle of lower back, Strain of muscle, fascia and tendon of lower back, initial encounter, Acute urinary tract infection Acute low back pain with bilateral sciatica Qualifiers: Back pain laterality: bilateral Qualified Code(s): M54.42 - Lumbago with sciatica, left side; M54.41 - Lumbago with sciatica, right side Disposition: HOME / SELF CARE / HOMELESS Is pt being admited?: No Does the pt Need Aspirin: No Condition: Stable Instructions: Muscle Cramps and Spasms, [id number], Sciatica, Muscle Strain, [id number], Urinary Tract Infection, Adult, [id number], Low Back Sprain or Strain Rehab-SportsMed Additional Instructions: Urinalysis showed urine acute urinary tract infection. Therefore take medication with food, drink plenty of fluids and follow-up with your primary care physician in 7 to 10 days for reevaluation. Return to the ED immediately if symptoms get worse. Prescriptions: Sulfamethoxazole/Trimethoprim [Bactrim DS TAB] 1 each PO Q12H #20 Ibuprofen [Motrin] 800 mg PO Q8HR PRN #30 tablet PRN Reason: Pain , Severe (7-10) methOCARBAMOL [Robaxin TAB] 750 mg PO Q8H PRN #30 tab PRN Reason: Muscle Spasm traMADoL [Ultram] 50 mg PO Q6HR PRN #15 tablet PRN Reason: Pain Referrals: [facility] [Provider Group] - 3-5 Days Forms: Work/School Release Form(ED) Time of Disposition: 23:23 Print Language: CHINESE
== END 2021-04-30 00:48 | disposition home or self-care (01) ==
LOC: ED 16:37
DX: S39.012A Strain of muscle, fascia and tendon of lower back, initial encounter (principal); N39.0 Urinary tract infection, site not specified; M62.830 Muscle spasm of back; Z90.49 Acquired absence of other specified parts of digestive tract; Z91.018 Allergy to other foods; Z79.899 Other long term (current) drug therapy; X58.XXXA Exposure to other specified factors, initial encounter; Y93.89 Activity, other specified; Y92.89 Other specified places as the place of occurrence of the external cause; Y99.8 Other external cause status
CPT/HCPCS: 81001; 81025; 87086; 99283; J7512

== ENCOUNTER 2021-09-21 16:46 | Emergency (ER) | payer SELFPAY ==
[2021-09-21 17:34] VITALS: BP 147/90
--- NOTE | 2021-09-22 03:21 | Emergency Department Report ---
- General Chief Complaint: Upper Respiratory Infection Stated Complaint: SORE THROAT/CHEST PAIN Source: patient Mode of arrival: Ambulatory Limitations: No Limitations - History of Present Illness Initial Comments: Patient is a 25-year-old -[place]ron[place] female with a history of morbid obesity and chronic bronchitis, and tobacco smoking who presents to the ED with complaint of acute onset persistent nasal and sinus congestion, sore throat and persistent dry cough for the last 4 days, worse in the last 2 days. Patient states that the symptoms have worsened especially in the last 24 hours such that she is not able to sleep. Patient states that no one else at home is had similar symptoms. Patient denies dizziness, syncope, nausea and vomiting, chest pain or shortness of breath, abdominal pain, diarrhea, fever, chills, dysuria, urinary frequency and urgency or headache. MD Complaint: cough, sore throat, rhinorrhea, nasal congestion, sinus pain -: Sudden, days(s) (2) Severity: moderate Severity scale (0 -10): 6 Quality: dull, aching Consistency: constant Improves With: nothing Worsens With: nothing Context: sick contacts Associated Symptoms: denies other symptoms, rhinorrhea, nasal congestion, sore throat, cough. denies: fever, chills, myalgias, diaphoresis, headache, stiff neck, chest pain, abdominal pain, nausea, vomiting, rash, confusion, right sweats, weight loss, epistaxis, other Treatments Prior to Arrival: "cold medicine" - Related Data Previous Rx's Medication Instructions Recorded Last Taken Type Ibuprofen [Motrin] 600 mg PO Q8H PRN #20 tablet 12/19/17 Unknown Rx Nitrofurantoin Monohyd/M-Cryst 100 mg PO BID #14 capsule 12/19/17 Unknown Rx [Macrobid 100 mg Capsule] Amoxicillin [Trimox CAP] 500 mg PO BID 10 Days #20 capsule 10/14/19 Unknown Rx Clindamycin [Clindamycin CAP] 300 mg PO Q6H 10 Days #40 capsule 11/16/19 Unknown Rx Amoxicillin [Trimox CAP] 500 mg PO BID 10 Days #20 capsule 02/06/20 Unknown Rx Ibuprofen [Motrin] 800 mg PO Q8HR PRN #21 tablet 04/08/20 Unknown Rx methOCARBAMOL [Robaxin TAB] 750 mg PO BID #30 tab 04/08/20 Unknown Rx Amoxicillin/Potassium Clav 1 each PO BID #14 tablet 08/01/20 Unknown Rx [Augmentin 875-125 Tablet] dexAMETHasone [Decadron] 8 mg PO ONCE #2 tablet 08/01/20 Unknown Rx Ibuprofen [Motrin] 800 mg PO Q8HR PRN #30 tablet 04/29/21 Unknown Rx Sulfamethoxazole/Trimethoprim 1 each PO Q12H #20 04/29/21 Unknown Rx [Bactrim DS TAB] methOCARBAMOL [Robaxin TAB] 750 mg PO Q8H PRN #30 tab 04/29/21 Unknown Rx traMADoL [Ultram] 50 mg PO Q6HR PRN #15 tablet 04/29/21 Unknown Rx Azithromycin [Zithromax Z-KIRSTY] 250 mg PO DAILY #6 tab 09/22/21 Unknown Rx Cetirizine HCl [Zyrtec 10mg tab] 10 mg PO DAILY #30 tablet 09/22/21 Unknown Rx Ibuprofen [Motrin 800 MG tab] 800 mg PO Q8HR PRN #24 tablet 09/22/21 Unknown Rx methylPREDNISolone [Medrol 4MG 4 mg PO DAILY #21 tab 09/22/21 Unknown Rx DOSEPAK (21 tabs)] Allergies Allergy/AdvReac Type Severity Reaction Status Date / Time blueberry Allergy Swelling Verified 09/21/21 17:34 ED Review of Systems ROS: Stated complaint: SORE THROAT/CHEST PAIN Other details as noted in HPI Constitutional: denies: chills, fever Eyes: denies: eye pain, eye discharge, vision change ENT: throat pain, congestion. denies: ear pain Respiratory: cough. denies: shortness of breath, wheezing Cardiovascular: denies: chest pain, palpitations Endocrine: no symptoms reported Gastrointestinal: denies: abdominal pain, nausea, vomiting, diarrhea Genitourinary: denies: urgency, dysuria, discharge Musculoskeletal: denies: back pain, joint swelling, arthralgia Skin: denies: rash, lesions Neurological: denies: headache, weakness, paresthesias Psychiatric: denies: anxiety, depression Hematological/Lymphatic: denies: easy bleeding, easy bruising ED Past Medical Hx - Past Medical History Additional medical history: Bronchitis - Surgical History Hx Appendectomy: Yes - Social History Smoking Status: Never Smoker Substance Use Type: None - Medications Home Medications: Home Medications Medication Instructions Recorded Confirmed Last Taken Type Ibuprofen [Motrin] 600 mg PO Q8H PRN #20 tablet 12/19/17 Unknown Rx Nitrofurantoin Monohyd/M-Cryst 100 mg PO BID #14 capsule 12/19/17 Unknown Rx [Macrobid 100 mg Capsule] Amoxicillin [Trimox CAP] 500 mg PO BID 10 Days #20 capsule 10/14/19 Unknown Rx Clindamycin [Clindamycin CAP] 300 mg PO Q6H 10 Days #40 capsule 11/16/19 Unknown Rx Amoxicillin [Trimox CAP] 500 mg PO BID 10 Days #20 capsule 02/06/20 Unknown Rx Ibuprofen [Motrin] 800 mg PO Q8HR PRN #21 tablet 04/08/20 Unknown Rx methOCARBAMOL [Robaxin TAB] 750 mg PO BID #30 tab 04/08/20 Unknown Rx Amoxicillin/Potassium Clav 1 each PO BID #14 tablet 08/01/20 Unknown Rx [Augmentin 875-125 Tablet] dexAMETHasone [Decadron] 8 mg PO ONCE #2 tablet 08/01/20 Unknown Rx Ibuprofen [Motrin] 800 mg PO Q8HR PRN #30 tablet 04/29/21 Unknown Rx Sulfamethoxazole/Trimethoprim 1 each PO Q12H #20 04/29/21 Unknown Rx [Bactrim DS TAB] methOCARBAMOL [Robaxin TAB] 750 mg PO Q8H PRN #30 tab 04/29/21 Unknown Rx traMADoL [Ultram] 50 mg PO Q6HR PRN #15 tablet 04/29/21 Unknown Rx Azithromycin [Zithromax Z-KIRSTY] 250 mg PO DAILY #6 tab 09/22/21 Unknown Rx Cetirizine HCl [Zyrtec 10mg tab] 10 mg PO DAILY #30 tablet 09/22/21 Unknown Rx Ibuprofen [Motrin 800 MG tab] 800 mg PO Q8HR PRN #24 tablet 09/22/21 Unknown Rx methylPREDNISolone [Medrol 4MG 4 mg PO DAILY #21 tab 09/22/21 Unknown Rx DOSEPAK (21 tabs)] ED Physical Exam - General Limitations: No Limitations General appearance: alert, in no apparent distress - Head Head exam: Present: atraumatic, normocephalic, normal inspection - Eye Eye exam: Present: normal appearance, PERRL, EOMI Pupils: Present: normal accommodation - ENT ENT exam: Present: mucous membranes moist, TM's normal bilaterally, normal external ear exam, other (Grossly congested nasal passages; mild erythematous oropharynx and tonsils) - Neck Neck exam: Present: normal inspection, full ROM - Respiratory Respiratory exam: Present: normal lung sounds bilaterally. Absent: respiratory distress, wheezes, rales, rhonchi, chest wall tenderness, accessory muscle use, decreased breath sounds, prolonged expiratory - Cardiovascular Cardiovascular Exam: Present: regular rate, normal rhythm, normal heart sounds. Absent: systolic murmur, diastolic murmur, rubs, gallop - GI/Abdominal GI/Abdominal exam: Present: soft, normal bowel sounds. Absent: tenderness, guarding, rebound, hyperactive bowel sounds, hypoactive bowel sounds, organomegaly, mass - Extremities Exam Extremities exam: Present: normal inspection, full ROM, normal capillary refill - Back Exam Back exam: Present: normal inspection, full ROM. Absent: tenderness, CVA tenderness (R), CVA tenderness (L), muscle spasm, paraspinal tenderness, vertebral tenderness - Neurological Exam Neurological exam: Present: alert, oriented X3, CN II-XII intact, normal gait, reflexes normal - Psychiatric Psychiatric exam: Present: normal affect, normal mood - Skin Skin exam: Present: warm, dry, intact, normal color. Absent: rash ED Course Vital Signs 09/21/21 17:32 Temperature 98.1 F Pulse Rate 82 Respiratory 17 Rate Blood Pressure 147/90 O2 Sat by Pulse 95 Oximetry ED Medical Decision Making - Medical Decision Making This is a 25-year-old -[place]ron[place] female with a history of morbid obesity and chronic bronchitis, and tobacco smoking who presents to the ED with complaint of acute onset persistent nasal and sinus congestion, sore throat and persistent dry cough for the last 4 days, worse in the last 2 days. Patient states that the symptoms have worsened especially in the last 24 hours such that she is not able to sleep. In the ED, patient is alert and oriented x3 and is not in any distress. Patient was discharged home on medications as in the history and physical exam findings, and was advised to follow-up with her primary care physician in 7 to 10 days for reevaluation or return to the ED immediately if symptoms get worse. - Differential Diagnosis Pharyngitis; URI; tonsillitis; bronchitis; rhinitis; Critical care attestation.: If time is entered above; I have spent that time in minutes in the direct care of this critically ill patient, excluding procedure time. ED Disposition Clinical Impression: Acute upper respiratory infection, Acute bacterial pharyngitis Acute bronchitis Qualifiers: Bronchitis organism: other organism Qualified Code(s): J20.8 - Acute bronchitis due to other specified organisms Disposition: HOME / SELF CARE / HOMELESS Is pt being admited?: No Does the pt Need Aspirin: No Condition: Stable Instructions: Acute Bronchitis (ED), Upper Respiratory Infection, Adult, [id number], Sore Throat, [id number], Acute Bronchitis, Adult, [id number] Additional Instructions: Take medication with food, drink plenty of fluids and follow-up with your primary care physician in 7 to 10 days for reevaluation. Return to the ED immediately if symptoms get worse. Prescriptions: methylPREDNISolone [Medrol 4MG DOSEPAK (21 tabs)] 4 mg PO DAILY #21 tab Ibuprofen [Motrin 800 MG tab] 800 mg PO Q8HR PRN #24 tablet PRN Reason: pain Azithromycin [Zithromax Z-KIRSTY] 250 mg PO DAILY #6 tab Cetirizine HCl [Zyrtec 10mg tab] 10 mg PO DAILY #30 tablet Referrals: [facility] [Provider Group] - 3-5 Days Time of Disposition: 03:18 Print Language: GREENLANDIC
== END 2021-09-22 04:09 | disposition home or self-care (01) ==
LOC: ED 16:46
DX: J06.9 Acute upper respiratory infection, unspecified (principal); J02.9 Acute pharyngitis, unspecified; J20.8 Acute bronchitis due to other specified organisms; Z90.89 Acquired absence of other organs
CPT/HCPCS: 99282